=== PATIENT | female | born 1975 | race Caucasian/White ===

== ENCOUNTER 2019-06-22 15:20 | Emergency (ER) | payer BC, OTHER ==
[2019-06-22 15:35] VITALS: BP 124/72; PULSE 60; TEMP 98.7; BMI 22.3
--- NOTE | 2019-06-22 16:05 | PDOC ---
Documentation entered by Adrián Gregorio SCRIBE, acting as scribe for José Sullivan MD. José Sullivan MD: This documentation has been prepared by the chiquiseJg Aiswarya, SCRIBE, under my direction and personally reviewed by me in its entirety. I confirm that the documentation accurately reflects all work, treatment, procedures, and medical decision making performed by me. History of Present Illness - General Chief Complaint: Laceration Stated Complaint: LEFT 5TH FINGER LACERATION History Source: Patient Exam Limitations: No Limitations - History of Present Illness Initial Comments: 06/22/19 15:54 The patient is a 44 year old female, with no significant PMH, who presents to the emergency department with a finger laceration that occurred today. The patient states she was slicing an onion when the knife slipped, cutting her 5th left finger. She currently endorses mild pain and bleeding to the site of injury. Patient states she is up to date with tetanus. The patient denies using any blood thinners. Denies any numbness or tingling. Denies any pain to pain on flexion and extension Allergies: NKDA Past surgical history: None reported Social history: None reported PCP: [facility] Past History - Past Medical History Allergies/Adverse Reactions: Allergies Allergy/AdvReac Type Severity Reaction Status Date / Time No Known Allergies Allergy Verified 06/22/19 15:22 Home Medications: Ambulatory Orders NK [No Known Home Medication] 06/22/19 Review of Systems - Review of Systems Able to Perform ROS?: Yes Comments:: 06/22/19 15:55 A complete review of 10 out of 10 review of systems is taken and is negative apart from what is previously mentioned below and in the HPI. *Physical Exam - Vital Signs Last Vital Signs Temp Pulse Resp BP Pulse Ox 98.7 F 60 18 124/72 98 06/22/19 15:20 06/22/19 15:20 06/22/19 15:20 06/22/19 15:20 06/22/19 15:20 - Physical Exam 06/22/19 15:55 Vitals: Triage Vital signs reviewed General Appearance: no acute distress, well nourished well developed, Cardiac: Regular rate and rhythm, no murmurs, no rubs, no gallops, Extremities: Full range of motion to all extremities, no cyanosis, clubbing, or edema Skin:+1cm laceration to the left pinky. Neuro: AOX3;, Strength intact to all extremities, Sensation intact to all extremities. Psych: normal mood, normal affect Medical Decision Making - Medical Decision Making 06/22/19 16:04 1 cm laceration to left fingertip well approximated discussed sutures versus Steri-Strips and glue amenable to either patient will prefer Steri-Strips and glue irrigated with 500 cc normal saline under high pressure good hemostasis Steri-Strips and will place Band-Aid placed Findings, the need for follow-up and strict return instructions discussed with patient. Discharge - Discharge Information Problems reviewed: Yes Clinical Impression/Diagnosis: Laceration Condition: Stable Disposition: HOME - Admission No - Follow up/Referral Referrals: [facility] [Primary Care Provider] - - Patient Discharge Instructions Patient Printed Discharge Instructions: DI for Laceration Repair Additional Instructions: Leave laceration covered and dry for the next 36 hours then okay to change Band- Aids. Try to avoid any trauma to the finger or wetting the finger for the next 5 to 7 days. Return to ED for any signs of infection or for any concerns. - Post Discharge Activity
== END 2019-06-22 16:12 | disposition home or self-care (01) ==
LOC: FER 15:20
PROC: 0HQGXZZ Repair Left Hand Skin, External Approach (ICD-10-PCS; principal; 2019-06-22)
DX: S61.217A Laceration without foreign body of left little finger without damage to nail, initial encounter (principal); W26.0XXA Contact with knife, initial encounter; Y93.G1 Activity, food preparation and clean up; Y92.89 Other specified places as the place of occurrence of the external cause
CPT/HCPCS: 99283-25